=== PATIENT | female | born 1935 | race Caucasian/White ===

== ENCOUNTER 2018-06-12 10:00 | Outpatient (RCR) | payer MEDICARE, SELFPAY ==
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
--- NOTE | 2018-06-12 12:39 | HP.PTDCSUM_ITS ---
HP - PT D/C Summary It has been my pleasure to treat KAMRAN LOPEZ under orders from César Brown MD, for the diagnosis of UNSTEADY GAIT. for a total of 9 visit(s). Discharge Date: 06/12/18 Please see the following information for a summary of their discharge status. - Subjective Subjective: PATIENT REPORTS SHE HAS LEARNED A LOT OF EX'S THAT SHE CAN DO BUT SHE HASN'T HAD A LOT OF TIME TO DO THEM. SHE STATES I FEEL BETTER. SHE REPORTS SHE CAN DO MORE AT HOME - MOVING THINGS AND CLEANING THINGS OUT. SHE REPORTS SHE GETS TOO BUSY TO EX BUT SHE DID GO TO AN EX CLASS THAT IS SITTING WITH OTHER LADIES THAT SHE LIKED NEAR HERE. PATIENT REPORTS SHE REALLY ISN'T HAVING ANY PAIN RIGHT NOW BUT USUALLY HER RIGHT HIP HURTS LIKE CRAZY. PATIENT REPORTS SHE DOES NOT WANT TO CONTINUE PT AT THIS TIME PARTIALLY BECAUSE OF THE DRIVE. SHE STATES SHE CAN DO HER HOME EX'S AND THE [facility] WHERE THE EX CLASS IS SHE CAN WALK TO. - Pain Full Body Pain Intensity (Out of 10): 0 Lumbar Spine Pain Intensity (Out of 10): 0 - Overall Improvement % Improvement: 90 - Objective Objective/Function: THIS PATIENT AMBULATES INDEP'LY INTO PT WITHOUT ANY ASSISTIVE DEVICES OR LOB. UPON EXAM, THERE ARE NO SIGNIFICANT CHANGES SINCE INITIAL EVAL EXCEPT SHE IS NOW INDEP WITH A HEP AND SHE HAS SIGNIFICANTLY IMPROVED POSTURAL AWARENESS. ALL GOALS HAVE BEEN MET AND SHE DOES NOT WANT TO CONTINUE PT AT THIS TIME. AFTER DISCUSSION, HER DAUGHTER IS AGREEABLE. THIS PT REINFORCED PRIOR INSTRUCTIONS FOR APPROPRIATE POSTURE CONTROL AND ACTIVITY MODIFICTIONS. PATIENT COMMUNICATES A GOOD UNDERSTANDING OF ALL INSTRUCTIONS. ALTHOUGH THIS PT DOES FEEL LIKE SHE COULD BENEFIT FROM [facility] PT SHE JUST REALLY DOES NOT WANT TO MAKE THE DRIVE ANYMORE RIGHT NOW. - Goals Goal 1:: DECREASE C/O GENERALIZED PAIN. Goal Progress: Goal Met Goal 2:: IMPROVE HOMEMAKING AND RECREATIONAL FUNCTION Goal Progress: Progressing Goal 3:: INSTRUCT IN PROPHYLAXIS Goal Progress: Goal Met - Plan Plan: D/C TO HEP AT PATIENTS REQUEST. - D/C Information If there are questions or concerns regarding this patient's physical therapy, please feel free to call me at [phone]. Thank you for the referral of this patient. Sincerely, Abbie Krishnamurthy
== END 2018-06-12 13:17 | disposition home or self-care (01) ==
LOC: PT 10:00
DX: R26.81 Unsteadiness on feet (principal)
CPT/HCPCS: 97113; 97162; 97164; 97530